=== PATIENT | male | born 1960 | race Hispanic/Latino ===

== ENCOUNTER 2020-05-05 07:50 | Emergency (ER) | payer OTHER ==
[2020-05-05] MEDS ORDERED: NOREPINEPHRINE 4MG/NS 250ML 250 ML IV ONE (08:09)
[2020-05-05] MEDS ORDERED: LORAZEPAM 2 MG/ML 1 ML VIAL ONE (08:16)
[2020-05-05 08:19] LABS: BASOPHILS % (AUTO) 0.6 % (0.0-5.0); EOSINOPHILS % (AUTO) 0.3 % (0.0-8.0); HEMATOCRIT 39.3 % (42-54); LYMPHOCYTES % (AUTO) 12.2 % (21.0-51.0); MEAN CORPUSCULAR HEMOGLOBIN 28.2 pg (27.0-33.0); MONOCYTES % (AUTO) 4.6 % (3.0-13.0); NEUTROPHILS % (AUTO) 81.5 % (40.0-77.0); PLATELET COUNT (AUTO) 494 K/uL (130-400); RED BLOOD CELL COUNT(AUTO) 4.32 MIL/uL (4.50-6.20); RED CELL DISTRIBUTION WIDTH 13.7 % (11.0-15.5); WHITE BLOOD COUNT (AUTO) 19.7 K/uL (4.8-10.8)
[2020-05-05] MEDS ORDERED: PROPOFOL 1000 MG/100 ML 100 ML IV ONE (08:32)
[2020-05-05] MEDS ORDERED: FENTANYL 2500MCG+NS 250ML 250 ML IV ONE (08:33)
[2020-05-05 08:44] LABS: INR 1.32 (0.85-1.15)
[2020-05-05 08:45] LABS: PARTIAL THROMBOPLASTIN TIME 40.5 SEC (26.3-35.5)
[2020-05-05 08:50] LABS: ABG BASE EXCESS -26.5 mmol/L (-2.0-3.0); ABG HCO3 9.4 mmol/L (21.0-28.0); ABG OXYGEN SATURATION 46.7 % (95.0-99.0); ABG PCO2 71 mmHg (35-48)
[2020-05-05 08:54] LABS: B-TYPE NATRIURETIC PEPTIDE 550 pg/mL (0-100)
[2020-05-05] MEDS ORDERED: VANCOMYCIN 1GM+NS 250ML 250 ML IV ONE (08:54)
[2020-05-05] MEDS ORDERED: ZOSYN 3.375GM+NS 50ML 50 ML IV ONE (08:54)
[2020-05-05 09:09] LABS: ABG BASE EXCESS -26.9 mmol/L (-2.0-3.0); ABG HCO3 8.2 mmol/L (21.0-28.0); ABG OXYGEN SATURATION 51.7 % (95.0-99.0); ABG PCO2 58 mmHg (35-48)
[2020-05-05] MEDS ORDERED: SODIUM BICARB 50MEQ 50ML VIAL 150 ML ONE (09:13)
[2020-05-05] MEDS ORDERED: EPINEPHRINE 0.1 MG/ML 10 ML SYG ONE ×2 (09:14→09:23)
== END 2020-05-05 13:22 | disposition expired ==
LOC: EDH 07:50
DX: I46.9 Cardiac arrest, cause unspecified (principal); R65.21 Severe sepsis with septic shock; R09.2 Respiratory arrest; I48.91 Unspecified atrial fibrillation; J96.00 Acute respiratory failure, unspecified whether with hypoxia or hypercapnia; J18.9 Pneumonia, unspecified organism; Z20.822 Contact with and (suspected) exposure to COVID-19; E11.9 Type 2 diabetes mellitus without complications; I10 Essential (primary) hypertension; Z87.891 Personal history of nicotine dependence
CPT/HCPCS: 31500; 36415; 36600 ×2; 71045 ×2; 82435 ×2; 82728; 82803 ×2; 82947 ×2; 82948 ×2; 83605 ×3; 83880; 84132 ×2; 84295 ×2; 84484; 85018 ×2; 85025; 85378; 85610; 85730; 87040 ×2; 87426; 92950 ×2; 93005 ×2; 94002; 96365; 96366; 96368; 96375; 99291; J0171 ×2; J2060; J2543; J2704; J3010; J3370; J3490 ×2; U0003